=== PATIENT | male | born 1980 | race Caucasian/White ===

== ENCOUNTER 2020-07-19 13:58 | Emergency (ER) | payer OTHER, SELFPAY ==
[2020-07-19 14:01] VITALS: BP 129/87; PULSE 79; RESP 18; TEMP 37.1; O2SAT 97; BMI 33.9
[2020-07-19 14:30] VITALS: BP 137/83; PULSE 87; RESP 18; O2SAT 97
[2020-07-19 14:34] VITALS: BP 137/83; PULSE 82; RESP 18; O2SAT 97
--- NOTE | 2020-07-19 15:03 | PC.NURSE ---
pt placed on covid/droplet precautions
--- NOTE | 2020-07-19 15:06 | ED_ITS ---
HPI - SOB/Dyspnea General: Chief Complaint: Shortness of Breath/Dyspnea Stated Complaint: weakness/sob Time Seen by Provider: 07/19/20 14:25 History of Present Illness: HPI Narrative: 39-year-old male who comes in complaining of shortness of breath and fatigue that suddenly began today he is also had some diarrhea. He has a known exposure to a positive COVID patient in a high risk exposure. He has had a little shortness of breath but not had much for cough. He denies any fever. He does not have diabetes not hypertensive he is moderately obese. MD elicited complaint: shortness of breath and cough Onset (ago): hour(s) Timing: constant Severity: mild Associated symptoms: Deny abdominal pain, chest pain, fever(s), nausea, orthopnea or vomiting Review of Systems Const: Denies: fever(s), chills, body aches, change in appetite, fatigue or malaise ENMT: Denies: throat pain, ear or mastoid pain, nasal discharge or nasal congestion Card: Denies: chest pain, edema, dyspnea on exertion or orthopnea Resp: Denies: dyspnea, productive cough or non-productive cough GI: Denies: abdominal pain, nausea, vomiting, hematemesis, coffee ground emesis, diarrhea, constipation, bloating, hematochezia or melena : Denies: flank pain, dysuria, urinary frequency or urinary urgency Skin/Breast: Denies: rash or pruritus Physical Exam Const: COMMON NORMALS: no acute distress GENERAL APPEARANCE: cooperative and comfortable ORIENTATION/CONSCIOUSNESS: Yes awake, Yes oriented to person, Yes oriented to place and Yes oriented to time HENMT: COMMON NORMALS: normocephalic, atraumatic and hearing grossly normal bilaterally HEAD & SCALP: normocephalic and atraumatic Neck/C-Spine: COMMON NORMALS: no JVD Resp: COMMON NORMALS: normal respiratory effort, No retractions, No use of accessory muscles and clear to auscultation bilaterally AUSCULTATION: clear to auscultation bilaterally Cardio: COMMON NORMALS: no JVD, regular rate, regular rhythm and No murmurs present (Cardio) RATE: regular rate RHYTHM: regular rhythm GI: COMMON NORMALS: Soft to palpation and No hepatosplenomegaly present AUSCULTATION: Yes normoactive bowel sounds PALPATION: Yes Soft to palpation, No Tenderness to palpation present (GI), No Guarding due to palpation present (GI) and Yes No hepatosplenomegaly present Extremity: COMMON NORMALS: normal to inspection, capillary refill normal, no clubbing, cyanosis or edema, no calf tenderness and no pedal edema Neuro: SENSORIUM/ORIENTATION: Yes oriented to person, Yes oriented to place and Yes oriented to time Skin: COMMON NORMALS: no rashes or lesions noted GENERAL SKIN EXAM: no rashes or lesions noted Course Vital Signs: Vital signs: Vital Signs Temperature 98.7 F 07/19/20 14:01 Pulse Rate 92 07/19/20 15:15 Respiratory Rate 18 07/19/20 14:34 Blood Pressure 118/89 07/19/20 15:15 Pulse Oximetry 96 07/19/20 15:15 MDM - SOB/Dyspnea MDM Narrative: Medical decision making narrative: It is stable suspect COVID- 19 infection. Will discharge home recommend self quarantine until results are available return if has worsening problems. Discharge Plan Discharge Patient Disposition: Home Clinical Impression: Suspected 2019-nCoV infection Condition: Stable Prescriptions: No Action No Known Home Medications RF: 0 Discharge Orders: Discharge Order (Routine); Ordered 07/19/20 Ordered By: Monico Bacon Activity Restrictions/Additional Instructions: Remain self quarantined until results are available. Discharge Date/Time: 07/19/20 15:15 Coding Level of Care Code ED Station Engineer Main Line for Jos Fwd Exam Comprehensive
[2020-07-19 15:15] VITALS: BP 118/89; PULSE 92; O2SAT 96
--- NOTE | 2020-07-19 15:15 | PC.NURSE ---
PT SWABBED FOR COVID 19
[2020-07-21 02:52] LABS: Quest SARS-CoV-2 RNA NOT DETECTED (NOT DETECTED)
--- NOTE | 2020-07-21 09:30 | PC.NURSE ---
Pt called and notified of negative COVID result.
== END 2020-07-19 15:15 | disposition home or self-care (01) ==
PROVIDERS: Emergency Provider Family Medicine
DX: Z20.828 Contact with and (suspected) exposure to other viral communicable diseases (principal)
CPT/HCPCS: 12345; 87635; 99282

== ENCOUNTER → 2021-10-28 08:47 | Outpatient (BNVA) | payer OTHER, SELFPAY | PROVIDERS: Visit Provider Nurse Practitioner Family | DX: Z20.822 Contact with and (suspected) exposure to COVID-19 (principal) | CPT/HCPCS: 87635 ==

== ENCOUNTER → 2021-11-11 10:11 | Outpatient (BNVA) | payer OTHER, SELFPAY | PROVIDERS: Visit Provider Nurse Practitioner Family | DX: Z20.822 Contact with and (suspected) exposure to COVID-19 (principal); J40 Bronchitis, not specified as acute or chronic | CPT/HCPCS: 87635 ==

== ENCOUNTER → 2023-07-21 13:08 | Outpatient (BNVA) | payer OTHER, SELFPAY | PROVIDERS: Visit Provider Nurse Practitioner Family | DX: M79.642 Pain in left hand (principal); M25.532 Pain in left wrist | CPT/HCPCS: 73110; 73130 ==